=== PATIENT | female | born 1955 | race Hispanic/Latino ===

== ENCOUNTER 2018-03-02 12:47 | Inpatient (IN) | payer SELFPAY ==
--- NOTE | 2018-03-02 13:44 | ED PDOC ---
HPI: SOB/CHF/COPD Additional Complaint(s): CC: Cough and shortness of breath HPI: 62 yo female who is visiting from [place] with PMHx COPD, HTN, HLD, Depression and urinary incontinence presents to ER with complaints of subjective fever, feeling tired, dry cough and shortness of breath for 5 days. Patient reports she has been using her inhalers more frequently and feels short of breath with walking a short distance. Denies chest pain, headache, dizziness, nausea, vomiting, diarrhea, dysuria or chills. Denies any leg swelling or calf pain. Denies any hx CHF or CAD. PMD: in [place] PMHx: COPD, HTN, HLD, depression and urinary incontinence PSHX: B/L knee surgeries Social hx: smokes 1 PPD x 50 years (trying to quit w/ nicotine patch), Denies ETOH or other drugs. Family hx: denies Medications: reviewed Allergies: NKDA <Sultan Chavo - Last Filed: 03/02/18 13:59> <Naeem Simpson - Last Filed: 03/02/18 16:00> Time Seen by Provider: 03/02/18 13:22 Chief Complaint (Nursing): Shortness Of Breath Supervising Attending Note - Supervising Attending Note The Documented history was done by the: Physician Coronary Clinical Specialist The documented physical exam was done by the: Physician Coronary Clinical Specialist The documented procedures were done by the: Physician Coronary Clinical Specialist - Attestation: I have personally seen and examined this patient.: Yes I have fully participated in the care of the patient.: Yes I have reviewed all pertinent clinical information, including history, physical exam and plan: Yes - Notes: Notes:: Dyspnea like her copd. Cough. <Naeem Simpson M - Last Filed: 03/02/18 16:00> Past Medical History Vital Signs: Last Vital Signs Temp 100.4 F H 03/02/18 13:02 Pulse 97 H 03/02/18 13:02 Resp 20 03/02/18 13:02 BP 137/80 03/02/18 13:02 Pulse Ox 99 03/02/18 13:02 <Sultan Chavo - Last Filed: 03/02/18 13:59> Vital Signs: Last Vital Signs Temp 100.4 F H 03/02/18 13:02 Pulse 97 H 03/02/18 13:02 Resp 20 03/02/18 13:46 BP 137/80 03/02/18 13:02 Pulse Ox 99 03/02/18 14:00 - Family History Family History: States: Unknown Family Hx <Naeem Simpson - Last Filed: 03/02/18 16:00> - Allergies Allergies/Adverse Reactions: Allergies Allergy/AdvReac Type Severity Reaction Status Date / Time No Known Allergies Allergy Verified 03/02/18 13:02 Curb-65 Severity Score - CURB-65 Severity Score Confusion: No Respiratory Rate greater than/equal to 30: No Systolic BP <90 or Diastolic BP less than/equal 60mmHg: No Age >64: No Curb-65 Score: 0 Percentage 30-day mortality: 0.6% <CamdenSailajaQuantico - Last Filed: 03/02/18 13:59> Review of Systems ROS Statement: Except As Marked, All Systems Reviewed And Found Negative <Camden - Last Filed: 03/02/18 13:59> Physical Exam - Physical Exam Appears: Positive for: Non-toxic, No Acute Distress Skin: Positive for: Normal Color, Warm ENT: Positive for: Normal ENT Inspection Neck: Positive for: Normal, Painless ROM, Supple Cardiovascular/Chest: Positive for: Regular Rate, Rhythm. Negative for: Murmur Respiratory: Positive for: Wheezing (diffuse end expiratory wheezing with prolong expiratory phase. No crackles or rales). Negative for: Accessory Muscle Use, Crackles, Rales Gastrointestinal/Abdominal: Positive for: Normal Exam, Soft. Negative for: Tenderness, Guarding, Rebound Extremity: Positive for: Normal ROM, Capillary Refill. Negative for: Tenderness, Pedal Edema, Calf Tenderness, Swelling Neurologic/Psych: Positive for: Alert, Oriented <CamdenSailajaQuantico - Last Filed: 03/02/18 13:59> - Physical Exam Appears: Positive for: Uncomfortable Neck: Positive for: Normal, Painless ROM, Supple Cardiovascular/Chest: Positive for: Regular Rate, Rhythm Respiratory: Positive for: Wheezing <Naeem Simpson - Last Filed: 03/02/18 16:00> - ECG O2 Sat by Pulse Oximetry: 99 - Progress ED Course And Treament: 62 yo female with history of COPD has cough, dyspnea, and subjective fever for 5 days. Plan: ABG EKG Blood cx CBC CMP Phosphate Mg PT/INR PRO-BNP TROPONIN Duoneb x3 Solumedrol 125 mg ivp IVF NS@125 cc/hr Re-evaluate Plan d/w Dr. Simpson <Sultan Chavo - Last Filed: 03/02/18 13:59> - Laboratory Results Result Diagrams: 03/02/18 14:07 03/02/18 14:07 Interpretation Of Abn Labs: flu pos; mild elevated liver enzymes - ECG ECG: Positive for: Interpreted By Me, Viewed By Me ECG Rhythm: Positive for: Normal QRS, Normal ST Segment, Sinus Rhythm Pulse Ox Interpretation: Normal - Radiology X-Ray: Interpreted by Me, Viewed By Me X-Ray Interpretation: No Acute Disease - Progress ED Course And Treament: 1529: AAOx3. Oxygen levels low. Will give mag. 1600: Spoke with Dr. Mukherjee, will admit. Tele. - Critical Care Total Time (In Min): 30 Documented Critical Care: Time excludes all time spent performint seperately billable procedures <Naeem Simpson - Last Filed: 03/02/18 16:00> Disposition <Sultan Chavo - Last Filed: 03/02/18 13:59> - Patient ED Disposition Is Patient to be Admitted: No Counseled Patient/Family Regarding: Studies Performed, Diagnosis - Disposition Disposition Time: 16:00 - Pt Status Changed To: Hospital Disposition Of: Inpatient - Admit Certification Admit to Inpatient:: After my assessment, the patient will require hospitalizati on for at least two midnights. This is because of the severity of symptoms shown, intensity of services needed, and/or the medical risk in this patient being treated as an outpatient. - POA Present On Arrival: None <Naeem Simpson - Last Filed: 03/02/18 16:00> - Clinical Impression Clinical Impression: COPD exacerbation, Flu, Sepsis - Disposition Condition: FAIR
[2018-03-02] MEDS ORDERED: Albuterol-Ipratrop 3 mg / 0.5 (3 ml) UD IH STA (13:45)
[2018-03-02] MEDS ORDERED: Sodium Chloride 0.9% 1,000 ML IV SCH (13:45)
[2018-03-02] MEDS ORDERED: Albuterol-Ipratrop 3 mg / 0.5 (3 ml) UD INH STA ×2 (13:45→13:46)
[2018-03-02] MEDS ORDERED: Albuterol-Ipratrop 3 mg / 0.5 (3 ml) UD ONE (13:53)
[2018-03-02 14:11] LABS: ABG ALLEN TEST YES; ARTERIAL BLOOD GAS HCO3 27.1 mmol/L (21-28); ARTERIAL BLOOD GAS O2 SAT 97.5 % (95-98); ARTERIAL BLOOD GAS PCO2 40 mm/Hg (35-45); ARTERIAL BLOOD GAS PH 7.44 (7.35-7.45); ARTERIAL BLOOD GAS PO2 76 mm/Hg (80-100); ARTERIAL BLOOD GAS TCO2 28.4 mmol/L (22-28)
[2018-03-02 14:12] LABS: BASO % 0.3 % (0.0-2.0); EOS % 0.2 % (0.0-4.0); HEMOGLOBIN 14.5 g/dL (12.0-16.0); LYMPH # 0.7 K/uL (1.0-4.3); LYMPH % 9.4 % (20.0-40.0); MEAN CELL VOLUME 92.8 fl (81.0-99.0); MEAN CORPUSCULAR HEMOGLOBIN 30.4 pg (27.0-31.0); MEAN CORPUSCULAR HGB CONC 32.8 g/dL (33.0-37.0); MEAN PLATELET VOLUME 10.4 fl (7.2-11.7); MONO # 0.8 K/uL (0.0-0.8); MONO % 10.8 % (0.0-10.0); NEUT # 5.5 K/uL (1.8-7.0); NEUT % 79.3 % (50.0-75.0); NRBC % 0.1 % (0.0-0.0); PLATELET COUNT 177 K/uL (130-400); RBC 4.76 Mil/uL (3.80-5.20); RED CELL DISTRIBUTION WIDTH 13.4 % (11.5-14.5)
[2018-03-02 14:24] LABS: ALB/GLOB RATIO 1.3 (1.0-2.1); ALBUMIN 4.1 g/dL (3.5-5.0); BLOOD UREA NITROGEN 12 mg/dl (7-17); CALCIUM 8.6 mg/dL (8.4-10.2); GFR NON-AFRICAN AMERICAN > 60
[2018-03-02 14:34] LABS: ALT/SGPT 53 U/L (9-52); AST/SGOT 65 U/L (14-36); PROTHROMBIN TIME 11.7 Seconds (9.8-13.1)
[2018-03-02 14:36] LABS: B-TYPE NATRIURETIC PEPTIDE 77.2 pg/ml (0-900)
[2018-03-02 14:37] LABS: PARTIAL THROMBOPLASTIN TIME 32.6 Seconds (25.6-37.1)
[2018-03-02 15:00] LABS: BANDS 3 % (0-2); LYMPHOCYTE 10 % (20-50); MONOCYTE 15 % (0-10); NEUTROPHIL 71 % (42-75); PLATELET ESTIMATE NORMAL (NORMAL); REACTIVE LYMPHOCYTES 1 % (0-0); TOTAL CELLS COUNTED 100
[2018-03-02] MEDS ORDERED: Magnesium Sulfate 2 gm/50 ml 2 GM/50 ML BAG IVPB ONE (15:45)
--- NOTE | 2018-03-02 16:02 | RAD ---
Date of service: 03/02/2018 HISTORY: Sepsis Patient COMPARISON: No prior. FINDINGS: LUNGS: The lungs are well inflated and clear. PLEURA: No pleural effusions or pneumothorax. CARDIOVASCULAR: The heart is normal in size. No aortic atherosclerotic calcification present. OSSEOUS STRUCTURES: Within normal limits for the patient's age. VISUALIZED UPPER ABDOMEN: Normal. OTHER FINDINGS: None. IMPRESSION: No active pulmonary disease.
[2018-03-02] MEDS ORDERED: Magnesium Sulfate 2 gm/50 ml 2 GM/50 ML BAG ONE (20:10)
--- NOTE | 2018-03-02 22:42 | CARD ---
APPROVED REPORT Date of service: 03/02/2018 EKG Measurement Heart [id number] ME 140P70 [id number] <Conclusion> Normal sinus rhythm Nonspecific ST and T wave abnormality Abnormal ECG
[2018-03-03] MEDS: Dextrose 5%/0.45% NS 1,000 ML IV SCH (00:32)
[2018-03-03] MEDS: Albuterol-Ipratrop 3 mg / 0.5 (3 ml) UD INH SCH ×4 (01:00→19:31)
[2018-03-03] MEDS: Enoxaparin 40 mg Syringe SC SCH (09:00)
[2018-03-03] MEDS ORDERED: methylPREDNISolone 40 MG in Sodium Chloride 0.9% 50 ML IVPB SCH (09:00)
[2018-03-03] MEDS: MethylPREDNISolone 40 mg Vial IVP SCH ×2 (09:01→17:22)
[2018-03-03] MEDS: Pantoprazole 40 mg EC Tab PO SCH (09:01)
[2018-03-03] MEDS: Oxycodone/Acetaminophen 5/325 mg Tab PO PRN ×2 (09:05→17:38)
--- NOTE | 2018-03-03 23:43 | HP ---
HISTORY OF PRESENT ILLNESS: Ms. Beck is a 62-year-old female who was visiting the [place] from [place]. She developed cough, shortness of breath, exercise intolerance, and generalized malaise with fever for the past 5 days prior to presentation. She showed up in the emergency room where she was diagnosed to have the flu and exacerbation of chronic obstructive pulmonary disease. PAST MEDICAL HISTORY: She has a past medical history of COPD, hypertension, hyperlipidemia, depression, urinary incontinence. She still continues to smoke cigarettes. FAMILY HISTORY: Unremarkable. SOCIAL HISTORY: She smokes one pack of cigarettes a day for the past 50 years. Does not use drugs or drink alcohol. REVIEW OF SYSTEMS: Remarkable for shortness of breath and exercise intolerance. PHYSICAL EXAMINATION: GENERAL: The patient is alert and oriented, appears to be much more comfortable since admission. VITAL SIGNS: Blood pressure 137/80 with a pulse of 97, respiratory rate 20. She has a low grade temperature of 100.4 degrees Fahrenheit, O2 sat 99% on room air. SKIN: Shows fair turgor. Pupils are equal and reactive to light and accommodation. JVP flat. Mouth shows fair hygiene with mucous engorgement of pharynx. LUNGS: Fair aeration with bilateral wheezing and basal dullness. HEART: Regular. No murmurs or gallop. BREASTS: Normal. ABDOMEN: Soft, nontender, no organomegaly. EXTREMITIES: Shows no edema or cyanosis. CENTRAL NERVOUS SYSTEM: Grossly intact. LABORATORY DATA: Remarkable for WBC of 7, hemoglobin of 14.5, platelet count 177,000. Sodium 139, potassium 4.3, BUN 12, creatinine 0.8, serum glucose 96. Chest x-ray, no active disease. Influenza A positive. IMPRESSION: Acute exacerbation of chronic obstructive pulmonary disease, haemophilus influenzae pulmonary infection, hypertension, history of depression, history of hyperlipidemia. PLAN: Intravenous hydration, intravenous steroids as well as bronchodilators. We will give Tamiflu p.o., oxygen p.r.n. Further therapy as per orders. If clinically stable in the next 48 hours, we will discharge home since the patient has a flight schedule for [place]. Kenneth Mukherjee MD [facility] # [id number]
[2018-03-04] MEDS: Albuterol-Ipratrop 3 mg / 0.5 (3 ml) UD INH SCH ×4 (00:59→19:16)
[2018-03-04] MEDS: MethylPREDNISolone 40 mg Vial IVP SCH ×2 (09:52→17:47)
[2018-03-04] MEDS: Pantoprazole 40 mg EC Tab PO SCH (09:52)
[2018-03-04] MEDS: Enoxaparin 40 mg Syringe SC SCH (09:54)
[2018-03-04] MEDS: Dextrose 5%/0.45% NS 1,000 ML IV SCH (09:55)
[2018-03-04] MEDS: Oxycodone/Acetaminophen 5/325 mg Tab PO PRN ×2 (10:20→20:22)
--- NOTE | 2018-03-04 11:16 | CP.PCM.PN ---
Subjective - Date & Time of Evaluation Date of Evaluation: 03/04/18 Time of Evaluation: 11:16 - Subjective Subjective: CLINICALLY IMPROVING COUGH AND SOB LESS Objective - Vital Signs/Intake and Output Vital Signs (last 24 hours): Temp Pulse Resp BP Pulse Ox 98.3 F 100 H 20 148/81 94 L 03/04/18 07:43 03/04/18 09:52 03/04/18 07:43 03/04/18 09:53 03/04/18 07:43 - Medications Medications: Current Medications Acetaminophen (Tylenol 325mg Tab) 650 mg PO Q6 PRN PRN Reason: Fever >100.4 F Acetaminophen (Tylenol 325mg Tab) 650 mg PO Q6 PRN PRN Reason: Pain, Mild (1-3) Last Admin: 03/03/18 00:31 Dose: 650 mg Albuterol/Ipratropium (Duoneb 3 Mg/0.5 Mg (3 Ml) Ud) 3 ml INH RQ6 BENEDICTO Last Admin: 03/04/18 08:15 Dose: 3 ml Amlodipine Besylate (Norvasc) 5 mg PO DAILY BENEDICTO Last Admin: 03/04/18 09:52 Dose: 5 mg Atorvastatin Calcium (Lipitor) 10 mg PO HS BENEDICTO Last Admin: 03/03/18 21:59 Dose: 10 mg Enoxaparin Sodium (Lovenox) 40 mg SC DAILY BENEDICTO; Protocol Last Admin: 03/04/18 09:54 Dose: 40 mg Fluoxetine HCl (Prozac) 60 mg PO DAILY BENEDICTO Last Admin: 03/04/18 09:53 Dose: 60 mg Ceftriaxone Sodium 1 gm/ (Sodium Chloride) 100 mls @ 100 mls/hr IVPB DAILY BENEDICTO; Protocol Last Admin: 03/04/18 09:51 Dose: 100 mls/hr Methylprednisolone (Solu-Medrol) 40 mg IVP BID BENEDICTO Last Admin: 03/04/18 09:52 Dose: 40 mg Oseltamivir Phosphate (Tamiflu Cap) 75 mg PO BID BENEDICTO; Protocol Last Admin: 03/04/18 09:53 Dose: 75 mg Oxycodone/Acetaminophen (Percocet 5/325 Mg Tab) 1 tab PO Q6 PRN PRN Reason: Other Stop: 03/05/18 23:35 Last Admin: 03/04/18 10:20 Dose: 1 tab Pantoprazole Sodium (Protonix Ec Tab) [address] [facility] Last Admin: 03/04/18 09:52 Dose: 40 mg Pregabalin (Lyrica) [address] [facility] Last Admin: 03/04/18 09:51 Dose: 150 mg Pregabalin (Lyrica) [address] [facility] Last Admin: 03/03/18 21:59 Dose: 300 mg Ramipril (Altace) [address] [facility] Last Admin: 03/04/18 09:53 Dose: 10 mg Trazodone HCl (Desyrel) [address] [facility] Last Admin: 03/04/18 09:52 Dose: 50 mg - Labs Labs: 03/02/18 14:07 03/02/18 14:07 PT 11.7 Seconds (9.8-13.1) 03/02/18 14:07 INR 1.0 03/02/18 14:07 APTT 32.6 Seconds (25.6-37.1) 03/02/18 14:07 - Constitutional Appears: No Acute Distress - Head Exam Head Exam: ATRAUMATIC, NORMAL INSPECTION, NORMOCEPHALIC - Eye Exam Eye Exam: EOMI, Normal appearance, PERRL Pupil Exam: NORMAL ACCOMODATION, PERRL - ENT Exam ENT Exam: Mucous Membranes Moist, Normal Exam - Neck Exam Neck Exam: Full ROM, Normal Inspection. absent: Lymphadenopathy - Respiratory Exam Respiratory Exam: Decreased Breath Sounds, Prolonged Expiratory Phase, Rales, Wheezes, NORMAL BREATHING PATTERN - Cardiovascular Exam Cardiovascular Exam: REGULAR RHYTHM, +S1, +S2. absent: Murmur - GI/Abdominal Exam GI & Abdominal Exam: Soft, Normal Bowel Sounds. absent: Tenderness - Rectal Exam Rectal Exam: NORMAL INSPECTION - Extremities Exam Extremities Exam: Full ROM, Normal Capillary Refill, Normal Inspection. absent: Joint Swelling, Pedal Edema - Back Exam Back Exam: NORMAL INSPECTION - Neurological Exam Neurological Exam: Alert, Awake, CN II-XII Intact, Normal Gait, Oriented x3 - Psychiatric Exam Psychiatric exam: Normal Affect, Normal Mood - Skin Skin Exam: Dry, Intact, Normal Color, Warm Assessment and Plan - Assessment and Plan (Free Text) Assessment: ACUTE EXAC OF COPD FLU HX OF ANXIETY/DEPRESSION HTN Plan: CONTINUE CURRENT RX
[2018-03-04 16:17] VITALS: RESP 18
[2018-03-05] MEDS: Albuterol-Ipratrop 3 mg / 0.5 (3 ml) UD INH SCH ×2 (01:06→08:11)
[2018-03-05 06:10] VITALS: O2SAT 92
[2018-03-05 08:49] VITALS: BP 167/96; PULSE 96; TEMP 98.3
[2018-03-05] MEDS: MethylPREDNISolone 40 mg Vial IVP SCH (09:00)
[2018-03-05] MEDS: Enoxaparin 40 mg Syringe SC SCH (09:06)
[2018-03-05] MEDS: Pantoprazole 40 mg EC Tab PO SCH (09:06)
--- NOTE | 2018-03-05 10:26 | CP.PCM.DIS ---
Provider - Provider Date of Admission: 03/02/18 15:58 Attending physician: Kenneth Mukherjee MD Time Spent in preparation of Discharge (in minutes): 35 Diagnosis - Discharge Diagnosis (1) COPD exacerbation Status: Acute (2) Flu Status: Acute (3) Sepsis Status: Acute (4) Hypertension Status: Acute Hospital Course - Lab Results Lab Results: Micro Results 03/02/18 14:07 Blood Blood Culture - Preliminary NO GROWTH AFTER 48 HOURS 03/02/18 14:07 Blood Blood Culture - Preliminary NO GROWTH AFTER 48 HOURS Most Recent Lab Values WBC 7.0 K/uL (4.8-10.8) 03/02/18 14:07 RBC 4.76 Mil/uL (3.80-5.20) 03/02/18 14:07 Hgb 14.5 g/dL (12.0-16.0) 03/02/18 14:07 Hct 44.2 % (34.0-47.0) 03/02/18 14:07 MCV 92.8 fl (81.0-99.0) 03/02/18 14:07 MCH 30.4 pg (27.0-31.0) 03/02/18 14:07 MCHC 32.8 g/dL (33.0-37.0) L 03/02/18 14:07 RDW 13.4 % (11.5-14.5) 03/02/18 14:07 Plt Count 177 K/uL (130-400) 03/02/18 14:07 MPV 10.4 fl (7.2-11.7) 03/02/18 14:07 Neut % (Auto) 79.3 % (50.0-75.0) H 03/02/18 14:07 Lymph % (Auto) 9.4 % (20.0-40.0) L 03/02/18 14:07 Charlton % (Auto) 10.8 % (0.0-10.0) H 03/02/18 14:07 Eos % (Auto) 0.2 % (0.0-4.0) 03/02/18 14:07 Baso % (Auto) 0.3 % (0.0-2.0) 03/02/18 14:07 Neut # (Auto) 5.5 K/uL (1.8-7.0) 03/02/18 14:07 Lymph # (Auto) 0.7 K/uL (1.0-4.3) L 03/02/18 14:07 Charlton # (Auto) 0.8 K/uL (0.0-0.8) 03/02/18 14:07 Eos # (Auto) 0.0 K/uL (0.0-0.7) 03/02/18 14:07 Baso # (Auto) 0.0 K/uL (0.0-0.2) 03/02/18 14:07 Neutrophils % (Manual) 71 % (42-75) 03/02/18 14:07 Band Neutrophils % 3 % (0-2) H 03/02/18 14:07 Lymphocytes % (Manual) 10 % (20-50) L 03/02/18 14:07 Reactive Lymphs % 1 % (0-0) H 03/02/18 14:07 Monocytes % (Manual) 15 % (0-10) H 03/02/18 14:07 Platelet Estimate Normal (NORMAL) 03/02/18 14:07 RBC Morphology Normal (NORMAL) 03/02/18 14:07 PT 11.7 Seconds (9.8-13.1) 03/02/18 14:07 INR 1.0 03/02/18 14:07 APTT 32.6 Seconds (25.6-37.1) 03/02/18 14:07 pCO2 40 mm/Hg (35-45) 03/02/18 14:06 pO2 76 mm/Hg (80-100) L 03/02/18 14:06 HCO3 27.1 mmol/L (21-28) 03/02/18 14:06 ABG pH 7.44 (7.35-7.45) 03/02/18 14:06 ABG Total CO2 28.4 mmol/L (22-28) H 03/02/18 14:06 ABG O2 Saturation 97.5 % (95-98) 03/02/18 14:06 ABG Base Excess 2.8 mmol/L (-2.0-3.0) 03/02/18 14:06 Jeffrey Test Yes 03/02/18 14:06 ABG Potassium 3.8 mmol/L (3.6-5.2) 03/02/18 14:06 A-a O2 Difference 159.0 mm/Hg 03/02/18 14:06 Sodium 137.0 mmol/L (132-148) 03/02/18 14:06 Chloride 105.0 mmol/L (98-107) 03/02/18 14:06 Glucose 95 mg/dL (65-105) 03/02/18 14:06 Lactate 0.6 mmol/L (0.7-2.1) L 03/02/18 14:06 FiO2 40.0 % 03/02/18 14:06 Sodium 139 mmol/l (132-148) 03/02/18 14:07 Potassium 4.3 MMOL/L (3.6-5.0) 03/02/18 14:07 Chloride 105 mmol/L (98-107) 03/02/18 14:07 Carbon Dioxide 27 mmol/L (22-30) 03/02/18 14:07 Anion Gap 11 (10-20) 03/02/18 14:07 BUN 12 mg/dl (7-17) 03/02/18 14:07 Creatinine 0.8 mg/dl (0.7-1.2) 03/02/18 14:07 Est GFR ( Amer) > 60 03/02/18 14:07 Est GFR (Non-Af Amer) > 60 03/02/18 14:07 Random Glucose 96 mg/dL (65-105) 03/02/18 14:07 Calcium 8.6 mg/dL (8.4-10.2) 03/02/18 14:07 Phosphorus 2.9 mg/dl (2.5-4.5) 03/02/18 14:07 Magnesium 1.8 MG/DL (1.6-2.3) 03/02/18 14:07 Total Bilirubin 0.4 mg/dl (0.2-1.3) 03/02/18 14:07 AST 65 U/L (14-36) H 03/02/18 14:07 ALT 53 U/L (9-52) H 03/02/18 14:07 Alkaline Phosphatase 58 U/L (38-126) 03/02/18 14:07 Troponin I < 0.0120 ng/mL (0.00-0.120) 03/02/18 14:07 NT-Pro-B Natriuret Pep 77.2 pg/ml (0-900) 03/02/18 14:07 Total Protein 7.3 G/DL (6.3-8.2) 03/02/18 14:07 Albumin 4.1 g/dL (3.5-5.0) 03/02/18 14:07 Globulin 3.2 gm/dL (2.2-3.9) 03/02/18 14:07 Albumin/Globulin Ratio 1.3 (1.0-2.1) 03/02/18 14:07 Arterial Blood Potassium 3.8 mmol/L (3.6-5.2) 03/02/18 14:06 Influenza Typ A,B (EIA) Pos for influenza a (NEGATIVE) H 03/02/18 14:07 - Hospital Course Hospital Course: no chest pains/shortness of breath afebrile vitals stable Discharge Exam - Head Exam Head Exam: ATRAUMATIC, NORMAL INSPECTION, NORMOCEPHALIC - Eye Exam Eye Exam: EOMI, Normal appearance, PERRL Pupil Exam: NORMAL ACCOMODATION, PERRL - GI/Abdominal Exam GI & Abdominal Exam: Normal Bowel Sounds - Rectal Exam Rectal Exam: NORMAL INSPECTION - Neurological Exam Neurological exam: Alert, CN II-XII Intact, Normal Gait, Oriented x3, Reflexes Normal - Psychiatric Exam Psychiatric exam: Normal Affect, Normal Mood - Skin Skin Exam: Dry, Intact, Normal Color, Warm Discharge Plan - Follow Up Plan Condition: FAIR Disposition: HOME/ ROUTINE Additional Instructions: discharge today pt is scheduled to fly to [place]--she does not require oxygen for flight--o2 sat on room air--92 to 95% case discussed with dr meza at [phone] as per pt's request
== END 2018-03-05 13:32 | disposition home or self-care (01) | DRG 872 ==
LOC: H.ER 12:47 → H.ERHOLD 15:58 → H.TEL 22:41
PROVIDERS: ADMIT Internal Medicine Pulmonary Disease; ATTEND Internal Medicine Pulmonary Disease
PROC: 3E0F7GC Introduction of Other Therapeutic Substance into Respiratory Tract, Via Natural or Artificial Opening (ICD-10-PCS; principal; 2018-03-03)
DX: A41.9 Sepsis, unspecified organism (principal); J44.1 Chronic obstructive pulmonary disease with (acute) exacerbation; J10.1 Influenza due to other identified influenza virus with other respiratory manifestations; E78.5 Hyperlipidemia, unspecified; F17.210 Nicotine dependence, cigarettes, uncomplicated; I10 Essential (primary) hypertension; F32.9 Major depressive disorder, single episode, unspecified; F41.9 Anxiety disorder, unspecified; R32 Unspecified urinary incontinence